=== PATIENT | male | born 1995 | race Caucasian/White ===

== ENCOUNTER 2020-05-12 14:51 | Outpatient (CLI) | payer OTHER ==
--- NOTE | 2020-05-12 16:07 | MRI Report ---
PROCEDURE: Knee RT W/O INDICATIONS: RT KNEE PAIN TECHNIQUE: Noncontrast sagittal PD fast spin echo and T2 fast spin echo with fat saturation, sagittal 3-D gradie nt sequence with fat saturation; coronal T1 spin echo and PD fast spin echo with fat saturation, and axial PD fast spin echo with fat saturation through the knee. COMPARISON: None. FINDINGS: Image quality: Excellent. Menisci: The medial and lateral menisci demonstrate normal morphology and internal signal. The meni scal root ligaments appear intact. Cruciate ligaments: The anterior and posterior cruciate ligaments appear intact. Medial structures: The medial collateral ligament appears intact. Visualized portions of the pes ans erinus tendons appear normal. No abnormal bursal fluid. Lateral structures: The lateral collateral ligament, long and short heads of the biceps femoris tend on appear intact. The popliteus tendon appears normal. Iliotibial band appears normal. Anterior structures: The quadriceps and patellar tendons appear intact. There is minimal T2 signal elevation within the patellar tendon at the patellar insertion site. Patellar alignment is normal. N o femoral trochlear dysplasia or ventral trochlear prominence. No edema in the infrapatellar fat pad . Bones and cartilage: No bone marrow contusions or fractures. 13 mm sclerotic density within the pos terior aspect of the medial femoral condyle is present, consistent with a bone island. The cartilage of the medial and lateral femorotibial compartments, as well as the patellofemoral compartment, appea rs normal in thickness. Joint space: There is physiologic knee joint fluid. Trace Acuña?s cyst. Normal appearing synovial p licae are incidentally noted. IMPRESSION: 1. No internal derangement. 2. Minimal patellar tendinitis. 3. Trace Acuña's cyst. Reviewed by: Giovanni Garcia MD on 05/12/2020 4:06 PM PST Approved by: Giovanni Garcia MD on 05/12/2020 4:06 PM PST Station ID: [id number]
== END 2020-05-12 14:52 | disposition home or self-care (01) ==
LOC: DI 14:51
DX: M76.51 Patellar tendinitis, right knee (principal)

== ENCOUNTER 2021-04-06 18:06 | Emergency (ER) | payer OTHER ==
[2021-04-06 19:06] VITALS: BP 134/91
[2021-04-06 19:33] LABS: RAPID STREP SCREEN Negative (Negative)
[2021-04-06] MEDS ORDERED: DEXAMETHASONE 10 MG/ML VIAL PO STA (19:47)
[2021-04-06] MEDS ORDERED: CHERRY SYRUP 10 ML UDC PO ONE (19:47)
--- NOTE | 2021-04-06 19:50 | ED Physician Documentation ---
History of Present Illness - Stated complaint Stated Complaint: THROAT PX - Chief complaint Chief Complaint: Heent - Additonal information Additional information: 26-year-old male presents emergency department for evaluation of 5 days sore t hroat. Fever of 102 yesterday. Dry cough. No exudate. Concerned he may have strep throat. No recent travel. He is a is immunized for COVID-19 Review of Systems Constitutional: reports: Fever. denies: Chills Eyes: reports: Reviewed and negative Ears: reports: Reviewed and negative Nose: reports: Reviewed and negative Throat: reports: Sore throat Cardiac: reports: Reviewed and negative Respiratory: reports: Reviewed and negative GI: reports: Reviewed and negative : reports: Reviewed and negative PD PAST MEDICAL HISTORY - Past Medical History Past Medical History: No - Past Surgical History Past Surgical History: No - Present Medications Home Medications: Ambulatory Orders Medication Instructions Recorded Confirmed No Known Home Medications 04/06/21 04/06/21 - Allergies Allergies/Adverse Reactions: Allergies Allergy/AdvReac Type Severity Reaction Status Date / Time No Known Drug Allergies Allergy Verified 04/06/21 18:31 - Social History Does the pt smoke?: No Smoking Status: Never smoker Does the pt drink ETOH?: Yes Does the pt have substance abuse?: No - Immunizations Immunizations are current?: Yes - POLST Patient has POLST: No PD ED PE NORMAL - General General: Alert and oriented X 3, No acute distress, Well developed/nourished - HEENT HEENT: Atraumatic, Moist mucous membranes, Other (Posterior oropharynx erythema without tonsillar exudate. Uvula is midline. No soft palate asymmetry. Normal phonation. No trismus.) - Neck Neck: Supple, no meningeal sign. No: No adenopathy - Cardiac Cardiac: RRR, No murmur - Respiratory Respiratory: No respiratory distress - Abdomen Abdomen: Normal bowel sounds, Soft, Non tender Results - Vitals Vitals: Vital Signs - 24 hr 04/06/21 04/06/21 18:28 19:05 Temperature 37.2 C 98.8 C H Heart Rate 60 66 Respiratory 13 Rate Blood Pressure 116/74 134/91 H O2 Saturation 100 Oxygen O2 Source Room air - Labs Labs: Laboratory Tests 04/06/21 19:19 Group A Strep Rapid Negative PD MEDICAL DECISION MAKING - ED course Complexity details: reviewed results, re-evaluated patient, d/w patient ED course: Well-appearing 26-year-old male presents emergency department for evaluation of 5 days sore throat. No findings to suggest RPA or [employer] on exam. Rapid strep is negative. Will defer antibiotics unless culture positive. Patient given Decadron here in the ER. Will recommend warm salt water gargle as well as ibuprofen at home. Departure - Departure Disposition: Home, Self Care Clinical Impression: Pharyngitis Qualifiers: Pharyngitis/tonsillitis etiology: unspecified etiology Qualified Code(s): J02.9 - Acute pharyngitis, unspecified Condition: Stable Record reviewed to determine appropriate education?: Yes Instructions: ED Pharyngitis Strep Poss Ch Comments: Mike the rapid strep was negative. We are going to send it for culture. However we will not prescribe antibiotics unless the culture is positive. Most sore throats are due to a virus however. We have given you a dose of Decadron tonight in the ER that will help with the sore throat and swallowing over the next 24 to 72 hours. I do recommend that you gargle with warm salt water and take 600 mg of ibuprofen with food for discomfort. If at any point you are unable to tolerate your oral secretions, begin to drool, have a high-pitched voice or are unable to turn your neck then please return immediately to the ER for a second look.
== END 2021-04-06 19:56 | disposition home or self-care (01) ==
LOC: ED 18:06
DX: J02.9 Acute pharyngitis, unspecified (principal)
CPT/HCPCS: 87070; 87430; 99282; 99283; A9270